=== PATIENT | male | born 1960 | race Caucasian/White ===

== ENCOUNTER 2018-05-08 10:34 | Emergency (ER) | payer OTHER ==
[2018-05-08 11:04] VITALS: BP 173/128
--- NOTE | 2018-05-08 11:13 | ED Physician Chart ---
ED Chief Complaint/HPI - Patient Information Date Seen:: 05/08/18 Time Seen:: 11:08 Chief Complaint:: elevated bp History of Present Illness:: 57 yr old male with hx of htn who stopped his meds for a year now needing mohs surgery for skin melanoma lt chhek who was at the doctors office for surgery on skin lesion pt has lt shoulder pain but thinks it is from sleeping on new mattress no pressure like pain no nv or worsening sob Allergies:: Allergies Allergy/AdvReac Type Severity Reaction Status Date / Time No Known Drug Allergies Allergy Unknown Verified 05/08/18 11:01 Vitals:: Vital Signs - 8 hr 05/08/18 05/08/18 10:34 11:04 Temp 97.0 F HR 69 RR 16 BP 173/128 173/128 O2 Sat % 96 ED Review of Systems - Review of Systems General/Constitutional: No fever Skin: Skin lesions, Other (melanoma lesion lt cheek) Head: No headache Eyes: No loss of vision ENT: No earache Neck: Neck pain Cardio Vascular: No chest pain Pulmonary: No SOB GI: No vomiting G/U: No dysuria Musculoskeletal: Bone or joint pain Endocrine: No polyuria Hematopoietic: No bruising Allergic/Immuno: No urticaria Neurological: No syncope Family Medical History - Family Member Mother History Unknown: Yes ED Assessment - Assessment General Assessment: htn out of control skin melanoma ED Septic Shock - . Is Septic Shock (SBP<90, OR Lactate>4 mmol\L) present?: No - <6hrs of presentation: Vital Signs: Vital Signs - 8 hr 05/08/18 05/08/18 10:34 11:04 Temp 97.0 F HR 69 RR 16 BP 173/128 173/128 O2 Sat % 96 ED Reassessment (Disposition) - Reassessment Reassessment Condition:: Improved - Diagnosis Diagnosis:: htn out of control - Aftercare/Follow up Instructions Aftercare/Follow-Up Instructions:: Counseled pt regarding lab results/diagnosis & need follow up Medication Prescribed:: lisinopril - Patient Disposition Discharge/Transfer:: Home Condition at Disposition:: Stable
[2018-05-08 11:36] LABS: % BASOPHILS 0.8 % (0.0-2.0); % EOSINOPHILS 3.5 % (0.0-5.0); % MONOCYTES 7.4 % (2.0-10.0); % NEUTROPHILS 67.3 % (40.0-80.0); BASOPHILE ABSOLUTE 0.1 Th/cumm (0-0.2); EOSINOPHILE ABSOLUTE 0.2 Th/cmm (0.1-0.4); HEMATOCRIT 47.6 % (41.0-60); HEMOGLOBIN 15.7 gm/dL (12-16); LYMPHOCYTE ABSOLUTE 1.3 Th/cmm (1.5-3.0); MEAN CORPUSCULAR HGB CONC 32.9 pg (28.0-36.0); MEAN PLATELET VOLUME 7.7 fl; MONOCYTE ABSOLUTE 0.5 Th/cmm (0.3-1.0); NEUTROPHILE ABSOLUTE 4.2 Th/cmm (1.8-8.0); PLATELET COUNT 261 Th/cmm (150-400); RED BLOOD COUNT 5.61 Mil/cmm (4.30-5.70); RED CELL DISTRIBUTION WIDTH 13.2 % (11.5-20.0); WHITE BLOOD COUNT 6.3 Th/cmm (4.8-10.8)
[2018-05-08 11:50] LABS: ALB/GLOB RATIO 1.3 (1.0-1.8); ALBUMIN 3.9 gm/dL (4.2-5.5); ALKALINE PHOSPHATASE 65 U/L (34-104); ANION GAP 13.4 (7.0-16.0); BILIRUBIN,TOTAL 0.5 mg/dL (0.3-1.0); BUN - UREA NITROGEN 12 mg/dL (7-25); CARBON DIOXIDE 27.5 mEq/L (21.0-31.0); CHLORIDE 99 mEq/L (98-107); CREATININE - SERUM 1.1 mg/dL (0.7-1.3); CREATININE KINASE 74 U/L (30-223); GFR AFRICAN-AMERICAN > 60.0 ml/min (>90); GFR NON AFRICAN-AMERICAN > 60.0 ml/min; GLUCOSE 121 mg/dL (70-105); POTASSIUM SERUM 3.9 mEq/L (3.5-5.1); SGOT 16 U/L (13-39); SGPT/ALT 18 U/L (7-52); SODIUM SERUM 136 mEq/L (136-145); TOTAL PROTEIN,SERUM 6.9 gm/dL (6.0-8.3)
[2018-05-08] MEDS ORDERED: Tuberculin 5 TU/0.1 mL UD ID ONE (12:11)
== END 2018-05-08 12:08 | disposition home or self-care (01) ==
LOC: ER 10:34
DX: I16.0 Hypertensive urgency (principal); I10 Essential (primary) hypertension; C43.9 Malignant melanoma of skin, unspecified
CPT/HCPCS: 36415-UA; 80053-TC; 82550-TC; 84484-TC; 85025-TC; 93005; X6226; Z7610

== ENCOUNTER 2019-04-26 02:16 | Emergency (ER) | payer OTHER ==
[2019-04-26] MEDS ORDERED: Albuterol/Ipratropium Neb 3 ML AERS HHN ONE ×2 (02:55→03:03)
--- NOTE | 2019-04-26 03:01 | ED Physician Chart ---
ED Chief Complaint/HPI - Patient Information Date Seen:: 04/26/19 Time Seen:: 02:45 Chief Complaint:: cough and shortness of breath History of Present Illness:: For the last 3 days patient's had cough and shortness of breath. When he starts to fall asleep he awakens with shortness of breath. No fever. His cough is productive of brown and black sputum. Allergies:: Allergies Allergy/AdvReac Type Severity Reaction Status Date / Time No Known Drug Allergies Allergy Unknown Verified 04/26/19 02:29 Vitals:: Vital Signs - 8 hr 04/26/19 02:20 Temp 98.6 F HR 110 RR 20 BP 162/118 O2 Sat % 96 Review:: Nurse's Note Reviewed ED Review of Systems - Review of Systems General/Constitutional: No fever, No chills Skin: No skin lesions Head: No headache Eyes: No loss of vision ENT: No earache, No sore throat Neck: No neck pain, No swelling Cardio Vascular: No chest pain, No palpitations GI: No nausea, No vomiting, No diarrhea G/U: Other (difficulty urinating which he attributes to enlarged prostate) Musculoskeletal: No back pain, No muscle pain Endocrine: No polyuria Psychiatric: No prior psych history Hematopoietic: No bruising Allergic/Immuno: No urticaria Neurological: Syncope ED Past Medical History - Past Medical History Past Medical History: HTN Family History: Diabetes Melitus Social History: Smoker, Alcohol Surgical History: Hernia, other (skin cancer face; right inguinal hernia repair) Psychiatricy History: None Medication: None Family Medical History - Family Member Mother History Unknown: Yes ED Physical Exam - Physical Examination General/Constitutional: Awake, Alert Other Gen/Cons comments:: Easy unlabored respirations; speaks in full sentences Head: Atraumatic Eyes: Lids, conjuctiva normal, PERRL Skin: Nl inspection, No rash ENMT: External ears, nose nl, TM canals nl, Nasal exam nl, Lips, teeth, gums nl , Oropharynx nl, Tonsils nl Neck: No nuchal rigidity Respiratory: Nl effort/Exclusion Other Respiratory comments:: 1/4 right-sided inspiratory wheezing; otherwise chest is clear Cardio Vascular: NL S1 S2 GI: No organomegaly, No hernia, Normal BS's, Nondistended, No mass/bruits, No McBurney tenderness Other GI comments:: Epigastric tenderness : No CVA tenderness Extremities: Normal digits & nails Neuro/Psych: No focal deficits ED Labs/Radiology/EKG Results - EKG Interpretations Rate & Rhythm: sinus tach with a rate of 107 [place]: normal Comments:: Left ventricular hypertrophy by voltage criteria; T-wave changes in 1, aVL, II, III, aVF and V5 and V6 ED Assessment - Assessment General Assessment: At 6:30 patient's chest was clear to auscultation and he stated he felt slightly better after the breathing treatment. Patient's blood pressure decreased to 130/97. Patient appears to have COPD exaceration probably related to his 20 years of cigarette smoking and CHF because his BNP is 1200. Patient was also on high blood pressure medication which he ran out of. Patient probably has long-standing hypertension since cardiomegaly was present on the chest x-ray and EKG showed cardiomegaly. I emphasized to the patient importance of stopping or at least decreasing his cigarette smoking. I will prescribe an albuterol metered-dose inhaler and personally give the patient instructions on how to use it correctly. ED Septic Shock - <6hrs of presentation: Vital Signs: Vital Signs - 8 hr 04/26/19 02:20 Temp 98.6 F HR 110 RR 20 BP 162/118 O2 Sat % 96 ED Reassessment (Disposition) - Reassessment Reassessment:: patient endorsed to Dr. Lopez at 0700. Reassessment Condition:: Improved - Diagnosis Diagnosis:: Exacerbation COPD; hypertension; cardiomegaly; congestive heart failure - Patient Disposition Condition at Disposition:: Stable, Improved
[2019-04-26 03:39] LABS: % EOSINOPHILS 3.8 % (0.0-5.0); % LYMPHOCYTES 19.3 % (20.0-50.0); % MONOCYTES 8.6 % (2.0-10.0); % NEUTROPHILS 68.3 % (40.0-80.0); EOSINOPHILE ABSOLUTE 0.3 Th/cmm (0.1-0.4); HEMOGLOBIN 14.9 gm/dL (12-16); LYMPHOCYTE ABSOLUTE 1.5 Th/cmm (1.5-3.0); MEAN CELL VOLUME 84.6 fl (80-99); MEAN CORPUSCULAR HEMOGLOBIN 28.6 pg (26.0-30.0); MEAN CORPUSCULAR HGB CONC 33.8 pg (28.0-36.0); MONOCYTE ABSOLUTE 0.7 Th/cmm (0.3-1.0); NEUTROPHILE ABSOLUTE 5.1 Th/cmm (1.8-8.0); PLATELET COUNT 250 Th/cmm (150-400); RED CELL DISTRIBUTION WIDTH 13.4 % (11.5-20.0); WHITE BLOOD COUNT 7.6 Th/cmm (4.8-10.8)
[2019-04-26 04:01] LABS: URINE SOURCE RANDOM
[2019-04-26 04:06] LABS: URINE BILIRUBIN NEGATIVE (NEGATIVE); URINE GLUCOSE (UA) NEGATIVE (NEGATIVE); URINE KETONE NEGATIVE (NEGATIVE); URINE LEUKOCYTE ESTERASE NEGATIVE (NEGATIVE); URINE MICROSCOPIC INDICATED? YES; URINE NITRATE NEGATIVE (NEGATIVE); URINE PH 5.5 (4.6 - 8.0); URINE PROTEIN 100 mg/dL (NEGATIVE); URINE UROBILINOGEN 0.2 E.U./dL (0.2 - 1.0)
[2019-04-26 05:08] LABS: URINE COLOR YELLOW
[2019-04-26 05:09] LABS: URINE CLARITY SLIGHT HAZY (CLEAR)
[2019-04-26 05:54] LABS: URINE BACTERIA NONE SEEN /hpf (NONE SEEN); URINE EPITHELIAL CELLS RARE /lpf (FEW)
[2019-04-26 05:55] LABS: URINE BLOOD MODERATE (NEGATIVE)
[2019-04-26 07:04] LABS: CHLORIDE 107 mEq/L (98-107); SODIUM SERUM 140 mEq/L (136-145)
[2019-04-26 07:05] LABS: BUN - UREA NITROGEN 20 mg/dL (7-25); CALCIUM SERUM 8.5 mg/dL (8.6-10.3); CREATININE - SERUM 1.4 mg/dL (0.7-1.3); GFR AFRICAN-AMERICAN > 60.0 ml/min (>90); GFR NON AFRICAN-AMERICAN 55.5 ml/min; GLUCOSE 121 mg/dL (70-105); MAGNESIUM 1.9 mg/dL (1.9-2.7)
[2019-04-26 07:10] LABS: AMPHETAMINE URINE POSITIVE (NEGATIVE); CANNABINOID THC POSITIVE (NEGATIVE); METHAMPHETAMINES QUAL URINE POSITIVE (NEGATIVE)
[2019-04-26 07:11] LABS: BARBITURATES URINE NEGATIVE (NEGATIVE); BENZODIAZEPINES QUAL URINE NEGATIVE (NEGATIVE); COCAINE METABOLITE QUAL URINE NEGATIVE (NEGATIVE); METHADONE URINE NEGATIVE (NEGATIVE); OPIATES (MORPHINE) QUAL. URINE NEGATIVE (NEGATIVE); PHENCYCLIDINE (PCP) URINE NEGATIVE (NEGATIVE); TRICYCLICS (TCA) QUAL. URINE NEGATIVE (NEGATIVE)
--- NOTE | 2019-04-26 09:40 | Diagnostic Imaging Report ---
CHEST X-RAY: AP view INDICATION: Cough COMPARISON: None FINDINGS: Increased interstitial lung markings are noted. There is no focal consolidation or pleural effusions mild cardiomegaly is noted. Degenerative changes of the spine are noted. Advanced degenerative changes of both shoulders are noted. IMPRESSION: Increased initial lung markings nonspecific, however, a marginal degree of congestion cannot be excluded. Please correlate clinically. No focal consolidation identified. Mild cardiomegaly.
== END 2019-04-26 07:00 | disposition left against medical advice (07) ==
LOC: ER 02:16
DX: J44.0 Chronic obstructive pulmonary disease with (acute) lower respiratory infection (principal); I11.0 Hypertensive heart disease with heart failure; I50.9 Heart failure, unspecified; F17.200 Nicotine dependence, unspecified, uncomplicated; Z98.890 Other specified postprocedural states
CPT/HCPCS: 36415-UA; 71045-TC; 80048-TC; 80307; 81001-TC; 83690-TC; 83735-TC; 83880-TC; 84484-TC; 85025-TC; 87086-90; 93005; 94640